=== PATIENT | female | born 1985 | race Caucasian/White ===

== ENCOUNTER 2017-04-13 12:08 | Emergency (ER) | payer OTHER ==
[~2017-04-13] VITALS: Wt 56.7 kg
[~2017-04-13 12:08] MED LIST: AMOXICILLIN500 MG PO; ANAPROX DS550 MG PO; BACTRIM DS 8001 TA1 PO; BENADRYL25 M2 PO; CATAFLAM50 MG PO; CEPHALEXIN500 M1 PO; CIPRO500 MG PO; CLEOCIN HCL150 MG PO; CLEOCIN150 MG PO; CLINDAMYCIN HC300 MG PO; COMPAZINE10 MG PO; DELTASONE10 MG PO; DELTASONE5 MG PO; DUONEB 3 MG/3 ML3 M1 INH; FLEXERIL5 MG PO; IBU-8800 MG PO; KETOROLAC10 MG PO; LEVOFLOXACIN500 MG PO; MEDROL DOSEPAK4 MG PO; MOTRIN800 MG PO; OXYGEN NAS; PEN-V500 MG PO; PERCOCET 325 MG1 TA2 PO; PHENERGAN W/DM120 ML PO; PREDNISONE10 MG PO; PREDNISONE20 M1 PO; SEPTRA DS 800 M1 TAB PO; SUBOXONE 8 MG-1 EACH SL; SUBOXONE 8 MG-21 TA1 SL; SUBOXONE 8 MG-21 TA2 SL; SUBUTEX8 M1 SL; SYMBICORT1 AE1 IH; TRAMADOL HCL50 MG PO; ULTRAM50 MG PO; VENTOLIN 02.5 MG/3 M INH; VIBRAMYCIN100 MG PO; XANAX1 MG PO; ZITHROMAX Z PA250 MG PO; ZITHROMAX250 MG PO; ZOFRAN ODT4 MG SL; Zofran4 MG PO; [UNRECOGNIZED DRUG - REMARK]
[2017-04-13 12:29] VITALS: BP 117/65
[2017-04-13] MEDS ORDERED: CLINDAMYCIN HC300 MG PO (12:51)
[2017-04-13] MEDS ORDERED: NAPROSYN500 MG PO (12:51)
== END 2017-04-13 13:58 | disposition home or self-care (01) ==
LOC: ED 12:08
DX: K08.89 Other specified disorders of teeth and supporting structures (principal)

== ENCOUNTER 2017-05-20 17:05 | Emergency (ER) | payer OTHER ==
[~2017-05-20] VITALS: Ht 152.4 cm; Wt 56.7 kg
[~2017-05-20 17:05] MED LIST changes: +NAPROSYN500 MG PO
[2017-05-20 17:15] VITALS: BP 128/80
[2017-05-20] MEDS ORDERED: PREDNISONE10 MG PO (17:28)
== END 2017-05-20 19:06 | disposition home or self-care (01) ==
LOC: ED 17:05
DX: M77.9 Enthesopathy, unspecified (principal); R03.0 Elevated blood-pressure reading, without diagnosis of hypertension; Z90.49 Acquired absence of other specified parts of digestive tract

== ENCOUNTER 2017-09-08 21:13 | Emergency (ER) | payer OTHER ==
[~2017-09-08] VITALS: Ht 152.4 cm; Wt 59.0 kg
[2017-09-08 21:20] VITALS: BP 124/75
[2017-09-08] MEDS ORDERED: ANAPROX DS550 MG PO (22:17)
== END 2017-09-08 23:31 | disposition home or self-care (01) ==
LOC: ED 21:13
DX: S63.502A Unspecified sprain of left wrist, initial encounter (principal); S60.222A Contusion of left hand, initial encounter; W00.0XXA Fall on same level due to ice and snow, initial encounter; Y93.89 Activity, other specified; Y92.89 Other specified places as the place of occurrence of the external cause; Y99.8 Other external cause status

== ENCOUNTER → 2018-02-11 | Outpatient (CLI) | payer OTHER ==
[2018-02-11 13:29] LABS: BASO % 0.6 % (0.0-1.0); EOS # 0.4 10*3/uL (0.0-0.4); HEMATOCRIT 37.7 % (37.0-47.0); HEMOGLOBIN 12.8 g/dl (12.0-16.0); LYMPH # 1.6 10*3/uL (1.3-4.4); MEAN CELL VOLUME 88.1 fl (81.0-99.0); MEAN CORPUSCULAR HGB 29.9 pg (27.0-31.0); MEAN PLATELET VOLUME 10.2 fl (9.6-12.3); MONO # 0.4 10*3/uL (0.1-1.0); MONO % 6.4 % (3.0-9.0); NEUT # 3.8 10*3/uL (2.3-7.9); PLATELET COUNT AUTOMATED 221 10*3/uL (130-400); RED BLOOD COUNT 4.28 10*6/uL (4.10-5.10); RED CELL DISTRI WIDTH 12.8 % (0-14.5); WHITE BLOOD COUNT 6.3 10*3/uL (4.8-10.8)
[2018-02-11 13:59] LABS: ALKALINE PHOSPHATASE 63 U/L (45-117); BUN 8 mg/dl (7-24); CHLORIDE 107 mmol/L (98-107); CREATININE 0.82 mg/dL (0.55-1.02); POTASSIUM 3.8 mmol/L (3.5-5.1); SGOT/AST 15 IU/L (3-35); SGPT/ALT 20 U/L (12-78); SODIUM 142 mmol/L (136-145); TOTAL PROTEIN 7.7 gm/dL (6.4-8.2)
[2018-02-12 07:04] LABS: HEPATITIS B SURFACE AG Negative (Negative)
[2018-02-14 11:41] LABS: HEPATITIS C VIRUS ANTIBODY >11.0 s/co (0.0-0.9)
== END | disposition home or self-care (01) ==
LOC: LAB 12:55
PROVIDERS: Neuromusculoskeletal Medicine & OMM
DX: F11.20 Opioid dependence, uncomplicated (principal)

== ENCOUNTER → 2018-03-18 | Outpatient (CLI) | payer OTHER | END | disposition home or self-care (01) | LOC: MRI 13:00 | DX: S06.0X0D Concussion without loss of consciousness, subsequent encounter (principal); R42 Dizziness and giddiness; R11.0 Nausea; X58.XXXD Exposure to other specified factors, subsequent encounter ==

== ENCOUNTER → 2018-04-27 | Outpatient (CLI) | payer OTHER ==
[2018-04-27 13:23] LABS: BASO % 0.3 % (0.0-1.0); EOS # 0.1 10*3/uL (0.0-0.4); EOS % 1.4 % (1.0-4.0); HEMATOCRIT 34.3 % (37.0-47.0); HEMOGLOBIN 11.3 g/dl (12.0-16.0); LYMPH # 1.9 10*3/uL (1.3-4.4); LYMPH % 24.4 % (27.0-41.0); MEAN CELL VOLUME 89.3 fl (81.0-99.0); MEAN CORPUSCULAR HGB 29.4 pg (27.0-31.0); MEAN CORPUSCULAR HGB CONC 32.9 g/dl (33.0-37.0); MEAN PLATELET VOLUME 10.6 fl (9.6-12.3); MONO # 0.4 10*3/uL (0.1-1.0); MONO % 4.8 % (3.0-9.0); NEUT # 5.3 10*3/uL (2.3-7.9); NEUT % 68.8 % (47.0-73.0); PLATELET COUNT AUTOMATED 241 10*3/uL (130-400); RED BLOOD COUNT 3.84 10*6/uL (4.10-5.10); RED CELL DISTRI WIDTH 12.6 % (0-14.5); WHITE BLOOD COUNT 7.7 10*3/uL (4.8-10.8)
[2018-04-27 13:30] LABS: ALBUMIN 3.5 gm/dl (3.1-4.5); ALKALINE PHOSPHATASE 63 U/L (45-117); BUN 12 mg/dl (7-24); CHLORIDE 105 mmol/L (98-107); CHOLESTEROL 131 mg/dL (<200); CREATININE 0.81 mg/dL (0.55-1.02); HDL CHOLESTEROL 60 mg/dl (40-60); LDL CHOLESTEROL 51 mg/dL (9-159); POTASSIUM 4.1 mmol/L (3.5-5.1); SGOT/AST 16 IU/L (3-35); SGPT/ALT 17 U/L (12-78); SODIUM 138 mmol/L (136-145); TOTAL PROTEIN 7.1 gm/dL (6.4-8.2); TRIGLYCERIDES 98 mg/dl (<150); VLDL CHOLESTEROL 20 mg/dL (6-40)
[2018-04-27 16:07] LABS: VITAMIN D, 25-HYDROXY 22.4 ng/mL (30-100)
[2018-04-28 08:08] LABS: HEPATITIS B SURFACE AG Negative (Negative)
[2018-04-28 21:06] LABS: HEPATITIS C QUANTITATION HCV Not Detected IU/mL (.)
[2018-04-29 09:03] LABS: HEPATITIS C VIRUS ANTIBODY >11.0 s/co (0.0-0.9)
== END | disposition home or self-care (01) ==
LOC: LAB 12:43
PROVIDERS: Internal Medicine
DX: Z11.59 Encounter for screening for other viral diseases (principal)

== ENCOUNTER → 2018-05-04 | Outpatient (CLI) | payer OTHER | END | disposition home or self-care (01) | LOC: NM 08:48 | DX: K76.0 Fatty (change of) liver, not elsewhere classified (principal) ==

== ENCOUNTER → 2018-05-19 | Outpatient (CLI) | payer OTHER | END | disposition home or self-care (01) | LOC: US 13:33 | DX: N80.9 Endometriosis, unspecified (principal) ==

== ENCOUNTER 2018-05-21 09:10 | Emergency (ER) | payer OTHER ==
[~2018-05-21] VITALS: Ht 152.4 cm; Wt 59.0 kg
[2018-05-21 09:14] VITALS: BP 105/59
[2018-05-21] MEDS ORDERED: PREDNISONE10 MG PO (09:24)
[2018-07-05] MEDS ORDERED: ZITHROMAX250 MG PO (17:59)
== END 2018-05-21 09:39 | disposition home or self-care (01) ==
LOC: ED 09:10
DX: L30.9 Dermatitis, unspecified (principal); J45.901 Unspecified asthma with (acute) exacerbation; Z79.899 Other long term (current) drug therapy

== ENCOUNTER 2018-10-11 16:38 | Emergency (ER) | payer OTHER ==
[~2018-10-11] VITALS: Ht 152.4 cm; Wt 59.0 kg
[2018-10-11 16:39] VITALS: BP 128/64
[2018-10-11 17:19] LABS: BASO # 0.1 10*3/uL (0.0-0.1); EOS # 0.4 10*3/uL (0.0-0.4); EOS % 7.1 % (1.0-4.0); HEMATOCRIT 36.3 % (37.0-47.0); LYMPH # 1.4 10*3/uL (1.3-4.4); LYMPH % 27.8 % (27.0-41.0); MEAN CELL VOLUME 88.8 fl (81.0-99.0); MEAN CORPUSCULAR HGB 29.3 pg (27.0-31.0); MEAN CORPUSCULAR HGB CONC 33.1 g/dl (33.0-37.0); MEAN PLATELET VOLUME 9.5 fl (9.6-12.3); MONO # 0.4 10*3/uL (0.1-1.0); MONO % 7.5 % (3.0-9.0); NEUT # 2.9 10*3/uL (2.3-7.9); NEUT % 56.4 % (47.0-73.0); PLATELET COUNT AUTOMATED 210 10*3/uL (130-400); RED BLOOD COUNT 4.09 10*6/uL (4.10-5.10); WHITE BLOOD COUNT 5.1 10*3/uL (4.8-10.8)
[2018-10-11 17:44] LABS: ALBUMIN 3.5 gm/dl (3.1-4.5); ALKALINE PHOSPHATASE 94 U/L (45-117); BUN 11 mg/dl (7-24); CHLORIDE 105 mmol/L (98-107); CREATININE 0.69 mg/dL (0.55-1.02); LIPASE 80 U/L (73-393); POTASSIUM 3.8 mmol/L (3.5-5.1); SGOT/AST 15 IU/L (3-35); SGPT/ALT 24 U/L (12-78); SODIUM 142 mmol/L (136-145); TOTAL PROTEIN 7.2 gm/dL (6.4-8.2)
[2018-10-11] MEDS ORDERED: ZOFRAN4 MG PO (19:04)
== END 2018-10-11 19:09 | disposition home or self-care (01) ==
LOC: ED 16:38
PROVIDERS: Nurse Practitioner Family
DX: A08.4 Viral intestinal infection, unspecified (principal); J45.909 Unspecified asthma, uncomplicated; Z79.899 Other long term (current) drug therapy; Z79.2 Long term (current) use of antibiotics; Z90.49 Acquired absence of other specified parts of digestive tract

== ENCOUNTER 2018-10-23 22:10 | Emergency (ER) | payer OTHER ==
[~2018-10-23] VITALS: Ht 152.4 cm; Wt 63.5 kg
[~2018-10-23 22:10] MED LIST changes: +ZOFRAN4 MG PO
[2018-10-23 22:13] VITALS: BP 109/45
[2018-10-23] MEDS ORDERED: TESSALON PERLE100 M1 PO (23:34)
[2018-10-23] MEDS ORDERED: PREDNISONE20 M1 PO (23:34)
[2018-10-23] MEDS ORDERED: PROVENTIL HFA6.7 GM INH (23:34)
== END 2018-10-24 00:01 | disposition home or self-care (01) ==
LOC: ED 22:10
DX: J20.9 Acute bronchitis, unspecified (principal); Z87.891 Personal history of nicotine dependence

== ENCOUNTER 2019-01-06 20:33 | Emergency (ER) | payer OTHER ==
[~2019-01-06] VITALS: Ht 152.4 cm; Wt 54.4 kg
[~2019-01-06 20:33] MED LIST changes: +PROVENTIL HFA6.7 GM INH; +TESSALON PERLE100 M1 PO
[2019-01-06 20:35] VITALS: BP 117/61
[2019-01-06] MEDS ORDERED: VISTARIL25 M2 PO (21:38)
== END 2019-01-06 21:50 | disposition home or self-care (01) ==
LOC: ED 20:33
DX: M79.89 Other specified soft tissue disorders (principal); T43.295A Adverse effect of other antidepressants, initial encounter; R53.1 Weakness; L29.9 Pruritus, unspecified; J45.909 Unspecified asthma, uncomplicated; Z79.899 Other long term (current) drug therapy; Z90.49 Acquired absence of other specified parts of digestive tract; Y92.89 Other specified places as the place of occurrence of the external cause

== ENCOUNTER 2019-05-15 20:05 | Emergency (ER) | payer OTHER ==
[~2019-05-15] VITALS: Ht 152.4 cm; Wt 49.9 kg
[2019-05-15 20:05] VITALS: BP 108/78
[~2019-05-15 20:05] MED LIST changes: +VISTARIL25 M2 PO
[2019-05-15] MEDS ORDERED: BENADRYL25 M2 PO (20:33)
[2019-05-15] MEDS ORDERED: MEDROL DOSEPAK4 MG PO (20:33)
== END 2019-05-15 20:45 | disposition home or self-care (01) ==
LOC: ED 20:05
DX: S70.261A Insect bite (nonvenomous), right hip, initial encounter (principal); W57.XXXA Bitten or stung by nonvenomous insect and other nonvenomous arthropods, initial encounter; Y93.89 Activity, other specified; Y92.89 Other specified places as the place of occurrence of the external cause; Y99.8 Other external cause status

== ENCOUNTER 2019-06-02 19:04 | Emergency (ER) | payer OTHER ==
[~2019-06-02] VITALS: Ht 152.4 cm; Wt 65.8 kg
[2019-06-02 20:10] LABS: BASO % 0.3 % (0.0-1.0); EOS # 0.1 10*3/uL (0.0-0.4); EOS % 1.3 % (1.0-4.0); HEMATOCRIT 41.9 % (37.0-47.0); HEMOGLOBIN 13.9 g/dl (12.0-16.0); LYMPH # 1.5 10*3/uL (1.3-4.4); LYMPH % 21.9 % (27.0-41.0); MEAN CELL VOLUME 91.9 fl (81.0-99.0); MEAN CORPUSCULAR HGB 30.5 pg (27.0-31.0); MEAN CORPUSCULAR HGB CONC 33.2 g/dl (33.0-37.0); MEAN PLATELET VOLUME 10.1 fl (9.6-12.3); MONO # 0.4 10*3/uL (0.1-1.0); MONO % 5.4 % (3.0-9.0); NEUT # 4.8 10*3/uL (2.3-7.9); PLATELET COUNT AUTOMATED 193 10*3/uL (130-400); RED BLOOD COUNT 4.56 10*6/uL (4.10-5.10); RED CELL DISTRI WIDTH 12.5 % (0-14.5); WHITE BLOOD COUNT 6.7 10*3/uL (4.8-10.8)
[2019-06-02 20:28] LABS: ALBUMIN 3.9 gm/dl (3.1-4.5); ALKALINE PHOSPHATASE 119 U/L (45-117); BUN 13 mg/dl (7-24); CHLORIDE 104 mmol/L (98-107); CREATININE 0.72 mg/dL (0.55-1.02); POTASSIUM 4.1 mmol/L (3.5-5.1); SGOT/AST 140 IU/L (3-35); SGPT/ALT 89 U/L (12-78); SODIUM 138 mmol/L (136-145); TOTAL PROTEIN 7.9 gm/dL (6.4-8.2)
[2019-06-02] MEDS ORDERED: AMOXICILLIN500 M2 PO (21:17)
== END 2019-06-02 20:44 | disposition home or self-care (01) ==
LOC: ED 19:04
PROVIDERS: Physician Assistant
DX: K08.89 Other specified disorders of teeth and supporting structures (principal); R11.2 Nausea with vomiting, unspecified; F17.200 Nicotine dependence, unspecified, uncomplicated; Z79.899 Other long term (current) drug therapy; Z90.49 Acquired absence of other specified parts of digestive tract

== ENCOUNTER 2020-10-04 21:45 | Emergency (ER) | payer OTHER ==
[~2020-10-04] VITALS: Wt 63.5 kg
[~2020-10-04 21:45] MED LIST changes: +AMOXICILLIN500 M2 PO
[2020-10-04 21:49] VITALS: BP 120/75
[2020-10-04] MEDS ORDERED: NAPROXEN250 MG PO (22:23)
== END 2020-10-04 22:46 | disposition home or self-care (01) ==
LOC: ED 21:45
DX: S60.222A Contusion of left hand, initial encounter (principal); J45.909 Unspecified asthma, uncomplicated; Z90.49 Acquired absence of other specified parts of digestive tract; Z98.51 Tubal ligation status; W00.9XXA Unspecified fall due to ice and snow, initial encounter; Y93.89 Activity, other specified; Y92.89 Other specified places as the place of occurrence of the external cause; Y99.8 Other external cause status

== ENCOUNTER → 2021-10-13 | Outpatient (CLI) | payer OTHER ==
[~2021-10-13] MED LIST changes: +NAPROXEN250 MG PO
[2021-10-13 14:37] LABS: BASO % 0.5 % (0.0-1.0); HEMATOCRIT 34.6 % (37.0-47.0); LYMPH # 1.5 10*3/uL (1.3-4.4); LYMPH % 38.9 % (27.0-41.0); MEAN CORPUSCULAR HGB 26.5 pg (27.0-31.0); MEAN CORPUSCULAR HGB CONC 31.2 g/dl (33.0-37.0); MEAN PLATELET VOLUME 10.2 fl (9.6-12.3); MONO # 0.3 10*3/uL (0.1-1.0); MONO % 7.6 % (3.0-9.0); NEUT % 51.7 % (47.0-73.0); PLATELET COUNT AUTOMATED 248 10*3/uL (130-400); RED BLOOD COUNT 4.07 10*6/uL (4.10-5.10); WHITE BLOOD COUNT 3.8 10*3/uL (4.8-10.8)
[2021-10-13 14:56] LABS: BUN 10 mg/dl (7-24); CHLORIDE 108 mmol/L (98-107); CHOLESTEROL 155 mg/dL (<200); CREATININE 0.79 mg/dL (0.55-1.02); IRON 50 ug/dL (50-170); POTASSIUM 3.9 mmol/L (3.5-5.1); SGOT/AST 9 IU/L (3-35); SGPT/ALT 14 U/L (12-78); SODIUM 139 mmol/L (136-145)
[2021-10-13 15:05] LABS: ALKALINE PHOSPHATASE 58 U/L (45-117); LDL CHOLESTEROL 76 mg/dL (9-159); T3 UPTAKE 30 % (31-39); THYROXINE (T4) TOTAL 7.1 ug/dl (4.8-13.9); TOTAL PROTEIN 7.1 gm/dL (6.4-8.2); TRIGLYCERIDES 53 mg/dl (<150)
[2021-10-13 16:10] LABS: FERRITIN 2.5 ng/mL (10.0-291.0)
== END | disposition home or self-care (01) ==
LOC: LAB 13:43
PROVIDERS: ATTEND Family Medicine
DX: Z13.1 Encounter for screening for diabetes mellitus (principal); Z13.6 Encounter for screening for cardiovascular disorders; F41.9 Anxiety disorder, unspecified; E55.9 Vitamin D deficiency, unspecified; F50.89 Other specified eating disorder; Z76.89 Persons encountering health services in other specified circumstances

== ENCOUNTER 2022-01-25 19:44 | Emergency (ER) | payer OTHER ==
[~2022-01-25] VITALS: Ht 154.9 cm
== END 2022-01-25 23:50 | disposition left against medical advice (07) ==
LOC: ED 19:44
DX: M25.532 Pain in left wrist (principal); Z53.21 Procedure and treatment not carried out due to patient leaving prior to being seen by health care provider

== ENCOUNTER 2022-02-27 11:39 | Emergency (ER) | payer OTHER ==
[2022-02-27 11:42] VITALS: BP 124/63
[2022-02-27] MEDS ORDERED: PREDNISONE50 MG PO (11:50)
== END 2022-02-27 11:58 | disposition home or self-care (01) ==
LOC: ED 11:39
DX: L23.7 Allergic contact dermatitis due to plants, except food (principal); Z90.49 Acquired absence of other specified parts of digestive tract; Z98.51 Tubal ligation status; Z90.89 Acquired absence of other organs

== ENCOUNTER 2025-03-22 22:12 | Emergency (ER) | payer OTHER ==
[~2025-03-22] VITALS: Ht 154.9 cm; Wt 63.5 kg
[~2025-03-22 22:12] MED LIST changes: +PREDNISONE50 MG PO
[2025-03-22 22:38] VITALS: BP 134/84
[2025-03-22] MEDS ORDERED: PREDNISONE10 M1 PO (23:25)
[2025-03-22] MEDS ORDERED: DIPHENHYDRAMINE25 M3 PO (23:25)
[2025-03-22] MEDS ORDERED: diphenhydrAMINE hydrochloride 25 MG CAP PO ONE (23:30)
== END 2025-03-22 23:35 | disposition home or self-care (01) ==
LOC: ED 22:12
DX: L23.7 Allergic contact dermatitis due to plants, except food (principal); Z79.899 Other long term (current) drug therapy; Z90.49 Acquired absence of other specified parts of digestive tract